=== PATIENT | male | born 1965 | race Caucasian/White ===

== ENCOUNTER 2021-05-16 10:21 | Emergency (ER) | payer BC ==
[2021-05-16] MEDS ORDERED: SODIUM CHLORIDE 0.9% 500 ML 500 ML IV STA (10:49)
--- NOTE | 2021-05-16 10:53 | ED ---
General Adult HPI - General Chief complaint: Upper Respiratory Infection Stated complaint: covid+/cough Time Seen by Provider: 05/16/21 10:34 Source: patient, family, RN notes reviewed Mode of arrival: ambulatory Limitations: no limitations - History of Present Illness Initial comments: Patient is a pleasant 56-year-old male presenting to the emergency department with concern for COVID-19 infection. Patient did a positive test prior to arrival. Patient has been having symptoms for the past 3-4 days. Patient does have cough. Patient is having fatigue and myalgias. Patient has mild loss of taste. Patient did take Tylenol earlier. - Related Data Home Medications Medication Instructions Recorded Confirmed Olmesartan/Hydrochlorothiazide 1 tab PO DAILY 04/27/18 04/28/18 [Benicar Hct 40-25 mg Tablet] Allergies Allergy/AdvReac Type Severity Reaction Status Date / Time No Known Allergies Allergy Verified 05/16/21 10:29 Review of Systems ROS Statement: Those systems with pertinent positive or pertinent negative responses have been documented in the HPI. ROS Other: All systems not noted in ROS Statement are negative. Constitutional: Reports: fever, chills Respiratory: Reports: as per HPI, cough Endocrine: Reports: fatigue Gastrointestinal: Denies: vomiting Past Medical History Past Medical History: Hypertension Additional Past Medical History / Comment(s): gout History of Any Multi-Drug Resistant Organisms: None Reported Past Surgical History: No Surgical Hx Reported Past Anesthesia/Blood Transfusion Reactions: No Reported Reaction Past Psychological History: No Psychological Hx Reported Smoking Status: Never smoker Past Alcohol Use History: Rare Past Drug Use History: None Reported - Past Family History Father Family Medical History: Cancer General Exam Limitations: no limitations General appearance: alert, in no apparent distress Head exam: Present: normocephalic Eye exam: Present: normal appearance Respiratory exam: Present: normal lung sounds bilaterally. Absent: respiratory distress, wheezes Cardiovascular Exam: Present: regular rate, normal rhythm Neurological exam: Present: alert Psychiatric exam: Present: normal affect, normal mood Skin exam: Present: normal color Course Vital Signs 05/16/21 10:25 Temperature 99.0 F Pulse Rate 78 Respiratory 18 Rate Blood Pressure 120/84 O2 Sat by Pulse 96 Oximetry Medical Decision Making - Medical Decision Making Patient is a candidate for monoclonal antibodies and would like to receive treatment. This has been ordered. Disposition Clinical Impression: COVID-19 Disposition: HOME SELF-CARE Condition: Stable Instructions (If sedation given, give patient instructions): Coronavirus Disease 2019 (COVID-19) Additional Instructions: Please do follow-up through primary care physician in the next couple days for recheck. [id number] vitamin C, vitamin D, and seek. Kgrm-[id number] melatonin. Tylenol as needed for fever. Return for difficulty breathing, worsening symptoms or any other concerns. Continue to quarantine per CDC guidelines. Is patient prescribed a controlled substance at d/c from ED?: No Referrals: Sampson Adams MD [Primary Care Provider] - 1-2 days Time of Disposition: 10:53
[2021-05-16] MEDS ORDERED: SODIUM CHLORIDE 0.9% 50 ML IVPB ONE (11:30)
[2021-05-16] MEDS ORDERED: CASIRIVIMAB (REGN10933) (EUA) 600 MG, IMDEVIMAB (REGN10987) (EUA) 600 MG in SODIUM CHLO... IVPB ONE (11:45)
[2021-05-16 12:45] VITALS: RESP 18
[2021-05-16 12:46] VITALS: BP 118/78; PULSE 80; TEMP 99.2
== END 2021-05-16 12:45 | disposition home or self-care (01) ==
LOC: EC 10:21
DX: U07.1 COVID-19 (principal); I10 Essential (primary) hypertension; Z79.899 Other long term (current) drug therapy
CPT/HCPCS: 99283; Q0243

== ENCOUNTER → 2021-11-19 | Outpatient (CLI) | payer BC ==
--- NOTE | 2021-11-19 10:39 | XR ---
EXAMINATION TYPE: XR foot complete LT DATE OF EXAM: 11/19/2021 COMPARISON: NONE HISTORY: Pain TECHNIQUE: Three views are submitted. FINDINGS: There is a displaced fracture involving the base proximal phalanx fifth digit. Articular extension no t excluded.. Joint spaces are preserved. Calcaneal spur noted near the Achilles insertion. IMPRESSION: 1. Mildly displaced fracture base proximal phalanx fifth digit with soft tissue edema. Articular exte nsion not excluded.
== END | disposition home or self-care (01) ==
LOC: RADXRMAIN 10:16
PROVIDERS: ATTEND Internal Medicine
DX: S92.912A Unspecified fracture of left toe(s), initial encounter for closed fracture (principal); M79.89 Other specified soft tissue disorders